=== PATIENT | male | born 1965 | race Caucasian/White ===

== ENCOUNTER 2020-02-29 18:45 | Emergency (ER) | payer SELFPAY ==
[~2020-02-29] VITALS: Ht 172.7 cm; Wt 63.5 kg
--- NOTE | 2020-02-29 19:00 | NUR ---
PT BIBPD C/O ABDOMINAL PAIN X 1 DAY. +NAUSEA. PT AAOX4, RR EVEN AND UNLABORED ON RA W NAD NOTED. PT CONNECTED TO THE MONITOR AND POX
[2020-02-29 19:28] LABS: BASOPHILS # (AUTO) 0.1 /CMM (0.0-0.2); BASOPHILS % (AUTO) 0.9 % (0.0-2.0); EOSINOPHILS % (AUTO) 1.5 % (0.0-6.0); HEMATOCRIT 39 % (39-51); HEMOGLOBIN 12.8 g/dL (13.5-17.5); LYMPHOCYTES # (AUTO) 3.2 /CMM (0.8-4.8); LYMPHOCYTES % (AUTO) 24.8 % (20.0-44.0); MEAN CORPUSCULAR HGB CONC 33 g/dl (31.0-36.0); MEAN CORPUSCULAR VOLUME 97 fL (80-96); MONOCYTES # (AUTO) 1.4 /CMM (0.1-1.30); MONOCYTES % (AUTO) 10.5 % (2.0-12.0); NEUTROPHILS # (AUTO) 8.1 /CMM (1.8-8.9); NEUTROPHILS % (AUTO) 62.3 % (43.0-81.0); PLATELET COUNT (AUTO) 252 /CMM (150-450)
[2020-02-29 19:38] LABS: CALCIUM, SERUM 7.9 mg/dL (8.5-10.1); CREATININE 1.1 mg/dL (0.6-1.3)
[2020-02-29] MEDS ORDERED: KETOROLAC TROMETHAMINE 15 MG/ML VIAL ONE (19:39)
[2020-02-29] MEDS ORDERED: LORAZEPAM INJ 2 MG/ML VIAL ONE (19:40)
[2020-02-29 19:43] LABS: ALBUMIN 3.6 g/dL (3.4-5.0); BILIRUBIN,DIRECT 0.4 mg/dL (0.0-0.2); BILIRUBIN,TOTAL 1.1 mg/dL (0.2-1.0); TOTAL PROTEIN, SERUM 8.2 g/dL (6.4-8.2)
[2020-02-29] MEDS ORDERED: CT SWABBABLE VALVE TRANS SET 1 EA INFUS.SET MC ONE (19:59)
[2020-02-29] MEDS ORDERED: IOHEXOL-300 100 ML VIAL IV ONE (19:59)
[2020-02-29] MEDS ORDERED: IV NS 0.9% 250 ML IV ONE (19:59)
--- NOTE | 2020-02-29 19:59 | NUR ---
PT SENT TO CT
[2020-02-29] MEDS ORDERED: KETOROLAC TROMETHAMINE INJ 30 MG/ML VIAL IV ONE (20:00)
[2020-02-29] MEDS ORDERED: LORAZEPAM INJ 2 MG/ML VIAL IV ONE (20:00)
--- NOTE | 2020-02-29 20:09 | NUR ---
PT BACK FROM CT
--- NOTE | 2020-02-29 21:18 | NUR ---
Patient discharged to [facility] in stable condition. Written and verbal after care instructions given. Patient verbalizes understanding of instruction.
[2020-02-29 21:19] VITALS: BP 147/84
== END 2020-02-29 21:20 ==
LOC: ER 18:50
DX: A08.4 Viral intestinal infection, unspecified (principal); I10 Essential (primary) hypertension; Z86.73 Personal history of transient ischemic attack (TIA), and cerebral infarction without residual deficits
CPT/HCPCS: 36415; 74177; 80048; 80076; 83690; 85025; 96374; 96375; 99285; J1885; J2060; J7050; Q9967